=== PATIENT | male | born 1985 ===

== ENCOUNTER 2017-11-08 01:54 | Emergency (ER) | payer SELFPAY ==
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
[2017-11-08 05:33] VITALS: BP 132/86; PULSE 86; RESP 19; TEMP 97.6
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
[2017-11-09 05:23] VITALS: O2SAT 96
== END 2017-11-08 05:45 | disposition home or self-care (01) ==
LOC: H.ER 01:54
DX: S09.90XA Unspecified injury of head, initial encounter (principal); F10.129 Alcohol abuse with intoxication, unspecified; Y04.0XXA Assault by unarmed brawl or fight, initial encounter